=== PATIENT | male | born 1955 | race Caucasian/White ===

== ENCOUNTER 2024-12-13 09:56 | Outpatient (CLI) | payer BC | END 2024-12-13 09:57 | disposition home or self-care (01) | LOC: RAD 09:56 | PROVIDERS: ATTEND Internal Medicine Critical Care Medicine | DX: R06.00 Dyspnea, unspecified (principal) | CPT/HCPCS: 71046 ==

== ENCOUNTER 2024-12-21 07:49 | Day surgery (SDC) | payer BC ==
[2024-12-20 14:45] VITALS: BMI 32.7
[~2024-12-21 07:49] MED LIST: Fluorouracil 100 MG, Enoxaparin 25 MG, EPINEPHrine 0.3 MG in Ophthalmic Irrigation Solu... IRR SCH
[2024-12-21] MEDS ORDERED: PHENYLephrine 2.5% Ophth Soln 15 ml Bottle ONE (08:52)
[2024-12-21] MEDS ORDERED: Cyclopentolate 1% Opth Drop 2 ML BOT ONE (08:52)
[2024-12-21 09:15] LABS: Hematocrit 43.3 % (42.0-52.0); Hemoglobin 14.1 g/dL (14.0-18.0); Mean Corpuscular HGB CONC 32.6 g/dL (32.0-36.0); Mean Corpuscular Hemoglobin 28.6 pg (27.0-31.0); Mean Corpuscular Volume 87.8 fL (78.0-98.0); Mean Platelet Volume 9.9 fL (7.4-10.4); Platelet Count 276 10x3/uL (130-400); Red Blood Cell (RBC) Count 4.93 mill/uL (4.70-6.10)
[2024-12-21] MEDS ORDERED: Midazolam HCl 2 mg/2 ml Vial ONE (09:16)
[2024-12-21] MEDS ORDERED: PROPOFOL 20 ML ONE (09:16)
[2024-12-21] MEDS ORDERED: fentaNYL 50 mcg/mL 1 mL Vial ONE (09:16)
[2024-12-21] MEDS ORDERED: Lidocaine 1% PF 5 ML VIAL ONE ×2 (09:17→10:22)
[2024-12-21] MEDS ORDERED: Lidocaine 4% PF 5 ML AMP ONE (10:22)
[2024-12-21] MEDS ORDERED: Bupivacaine 0.75% 10 ML VIAL ONE (10:22)
[2024-12-21] MEDS ORDERED: CEFAZOLIN 1 GM VIAL ONE (10:22)
[2024-12-21] MEDS ORDERED: Maxitrol 0.1% Opth Oint 3.5 GM TUBE ONE (10:22)
[2024-12-21] MEDS ORDERED: Triamcinolone 40 MG/ML VIAL ONE (10:22)
[2024-12-21] MEDS ORDERED: Ondansetron PF 4 MG/2 ML Vial ONE (10:22)
== END 2024-12-21 12:00 | disposition home or self-care (01) ==
LOC: SDC 07:49
PROVIDERS: ATTEND Ophthalmology Retina Specialist
PROC: 08T53ZZ Resection of Left Vitreous, Percutaneous Approach (ICD-10-PCS; principal; 2024-12-21)
DX: H33.022 Retinal detachment with multiple breaks, left eye (principal); I10 Essential (primary) hypertension; E78.5 Hyperlipidemia, unspecified; K21.9 Gastro-esophageal reflux disease without esophagitis; J44.9 Chronic obstructive pulmonary disease, unspecified; Z88.5 Allergy status to narcotic agent; Z79.82 Long term (current) use of aspirin; Z79.899 Other long term (current) drug therapy
CPT/HCPCS: 67025; 85027; J0171; J0690; J1650; J2250; J2405; J2704; J3010; J3301; J3490; J9190

== ENCOUNTER 2025-07-12 05:59 | Day surgery (SDC) | payer BC, MEDICARE ==
[2025-07-11 14:32] VITALS: BMI 34.0
[~2025-07-12 05:59] MED LIST changes: +EPINEPHrine 0.3 MG in Ophthalmic Irrigation Solution 500 ML IRR SCH; -Fluorouracil 100 MG, Enoxaparin 25 MG, EPINEPHrine 0.3 MG in Ophthalmic Irrigation Solu... IRR SCH
[2025-07-12] MEDS ORDERED: Cyclopentolate 1% Opth Drop 2 ML BOT ONE (06:14)
[2025-07-12] MEDS ORDERED: PROPOFOL 20 ML ONE (07:00)
[2025-07-12] MEDS ORDERED: Lidocaine 1% PF 5 ML VIAL ONE (07:18)
[2025-07-12] MEDS ORDERED: CEFAZOLIN 1 GM VIAL ONE (07:18)
[2025-07-12] MEDS ORDERED: Maxitrol 0.1% Opth Oint 3.5 GM TUBE ONE (07:18)
[2025-07-12] MEDS ORDERED: Lidocaine 4% PF 5 ML AMP ONE (07:18)
== END 2025-07-12 08:50 | disposition home or self-care (01) ==
LOC: SDC 05:59
PROVIDERS: ATTEND Ophthalmology Retina Specialist
PROC: 08T53ZZ Resection of Left Vitreous, Percutaneous Approach (ICD-10-PCS; principal; 2025-07-12)
DX: H43.392 Other vitreous opacities, left eye (principal); I11.0 Hypertensive heart disease with heart failure; I50.9 Heart failure, unspecified; E78.5 Hyperlipidemia, unspecified; I25.10 Atherosclerotic heart disease of native coronary artery without angina pectoris; J44.89 Other specified chronic obstructive pulmonary disease; Z88.8 Allergy status to other drugs, medicaments and biological substances
CPT/HCPCS: J0166; J0690; J2250; J2704; J3010; J3301; J3490

== ENCOUNTER 2025-09-13 06:33 | Day surgery (SDC) | payer BC, MEDICARE ==
[2025-09-12 10:45] VITALS: BMI 34.0
[2025-09-13] MEDS ORDERED: Cyclopentolate 1% Opth Drop 2 ML BOT ONE (06:56)
[2025-09-13] MEDS ORDERED: PROPOFOL 20 ML ONE (07:30)
[2025-09-13] MEDS ORDERED: Lidocaine 1% PF 5 ML VIAL ONE ×2 (07:58→08:04)
[2025-09-13] MEDS ORDERED: Lidocaine 4% PF 5 ML AMP ONE (07:58)
[2025-09-13] MEDS ORDERED: Maxitrol 0.1% Opth Oint 3.5 GM TUBE ONE (07:58)
[2025-09-13] MEDS ORDERED: CEFAZOLIN 1 GM VIAL ONE (07:58)
== END 2025-09-13 09:00 | disposition home or self-care (01) ==
LOC: SDC 06:33
PROVIDERS: ATTEND Ophthalmology Retina Specialist
DX: H43.311 Vitreous membranes and strands, right eye (principal); Z98.41 Cataract extraction status, right eye; Z98.42 Cataract extraction status, left eye; Z96.659 Presence of unspecified artificial knee joint; Z88.5 Allergy status to narcotic agent
CPT/HCPCS: J0166; J0690; J1100; J2250; J2704; J3010; J3490